=== PATIENT | female | born 1950 | race Caucasian/White ===

== ENCOUNTER 2016-12-21 09:03 | Day surgery (SDC) | payer MEDICARE ==
[~2016-12-21 09:03] MED LIST: Acetaminophen TAB* 325 MG PO PRN; Buffered Lidocaine 1% SYRIN* 3 ML/SYR SYRINGE INTRADERM ONE
[2016-12-21] MEDS ORDERED: Midazolam* 1 MG/ML 2 ML VIAL (2 MG) ONE ×3 (10:48→11:40)
[2016-12-21 12:42] VITALS: BP 158/84
[2016-12-21] MEDS ORDERED: Lidocaine 1% MPF* 2 ML VIAL ONE ×2 (14:48→15:39)
[2016-12-21] MEDS ORDERED: Phenylephrine 2.5% OPTH.SOL* 2 ML BTL ONE (14:48)
[2016-12-21] MEDS ORDERED: Flurbiprofen 0.03% OPTH.SOL* 2.5 ML BTL ONE (14:48)
[2016-12-21] MEDS ORDERED: acetaZOLAMIDE TAB* 250 MG ONE (14:48)
[2016-12-21] MEDS ORDERED: Cyclopentolate 1% OPTH.SOL* 2 ML BTL ONE (14:48)
[2016-12-21] MEDS ORDERED: Tetracaine 0.5% OPTH.SOL 4 ML* 1 DROP BTL ONE (14:49)
[2016-12-21] MEDS ORDERED: Neomycin/Polymy/Dex OPHTH.OIN* 3.5 GM ONE (14:49)
[2016-12-21] MEDS ORDERED: Tropicamide 1% OPTH.SOL* BTL ONE (14:49)
[2016-12-21] MEDS ORDERED: Povidone Iodine 5% OPTH* 30 ML BTL ONE (14:49)
--- NOTE | 2016-12-22 03:05 | OP ---
DATE OF OPERATION: 12/21/16 - [facility] DATE OF : 52 SURGEON: Ervin Yoo MD ANESTHESIOLOGIST: Dr. Ybarra ANESTHESIA: Monitored anesthesia care. PRE-OP DIAGNOSIS: Cataract left eye. POST-OP DIAGNOSIS: Cataract left eye. OPERATIVE PROCEDURE: Cataract extraction of the left eye. IMPLANTS: SN60WF 18.0 diopter lens left eye. COMPLICATIONS: None. DESCRIPTION OF PROCEDURE: The patient was given phenylephrine 2.5% with cyclopentolate 1% eye drops to the operative eye in the preoperative area. The patient was brought to the operating room where a time-out was taken to identify the correct patient, site and side of surgery. The patient's left eye was prepped and draped in the usual sterile fashion with 5% Betadine. A second time-out was taken to verify the correct patient site, and side of surgery and correct lens selection. A lid speculum was placed in the left eye. A 1 mm paracentesis blade was used to make a clear corneal incision in the inferotemporal position. Preservative-free 1% lidocaine was injected into the anterior chamber. DisCoVisc was then injected in the anterior chamber. A 2.75 mm keratome blade was used to make a triplanar incision at the superotemporal position. A Cystitome was used to initiate a capsulorrhexis which was completed with Utrata forceps in a continuous curvilinear manner. Hydrodissection of the lens was then performed with a BSS on a cannula. The lens could be spun in the capsular bag. The phacoemulsification handpiece was then used with a divide and conquer technique to remove the nucleus in its entirety with 9.25 CDE. The I/A handpiece was then used to remove the residual cortical lens material. DisCoVisc was then injected to inflate the capsular bag. The planned SN60WF 18.0 diopter lens was then injected into the capsular bag. The residual DisCoVisc was then removed from the eye with the I/A handpiece. The corneal incisions were then hydrated and no leaks occurred at physiologic pressure around 20 mmHg per palpation. The lid speculum was then removed and drapes removed. Maxitrol ointment was then placed on the surface of the operative eye. An adhesive patch and shield were placed on the operative eye. The patient was taken to the postoperative area in stable condition. [id number]/[facility] #: [id number] GREG[place]
== END 2016-12-21 12:28 | disposition home or self-care (01) ==
LOC: OREAST 09:03
PROVIDERS: ATTEND Student in an Organized Health Care Education/Training Program
DX: H25.12 Age-related nuclear cataract, left eye (principal); H43.813 Vitreous degeneration, bilateral; E11.8 Type 2 diabetes mellitus with unspecified complications; Z79.84 Long term (current) use of oral hypoglycemic drugs; E03.9 Hypothyroidism, unspecified; I10 Essential (primary) hypertension; E78.00 Pure hypercholesterolemia, unspecified
CPT/HCPCS: A9270-GY; J2250; V2632